=== PATIENT | female | born 1985 | race Caucasian/White ===

== ENCOUNTER 2017-09-10 13:25 | Emergency (ER) | payer OTHER ==
[~2017-09-10] VITALS: Ht 165.1 cm; Wt 70.0 kg
[2017-09-10] MEDS ORDERED: MULT1CAP32 PO (13:30)
[2017-09-10 14:21] LABS: BASOPHILS # (AUTO) 0.05 K/uL (0.00-0.20); BASOPHILS % (AUTO) 0.7 % (0.0-2.0); EOSINOPHILS # (AUTO) 0.21 K/uL (0.00-0.70); EOSINOPHILS % (AUTO) 3.21 % (1.0-6.0); HEMATOCRIT 38.1 % (36-46); HEMOGLOBIN 12.4 g/dL (12.0-16.0); MEAN CORPUSCULAR HEMOGLOBIN 28.4 pg (26.0-34.0); MEAN CORPUSCULAR HGB CONC 32.6 G/dL (31.0-37.0); MEAN CORPUSCULAR VOLUME 87 fL (80-100); MONOCYTES # (AUTO) 0.5 K/uL (0.1-1.0); MONOCYTES % (AUTO) 6.9 % (2.0-9.0); NEUTROPHILS # (AUTO) 3.9 K/uL (1.8-7.7); NEUTROPHILS % (AUTO) 59.2 % (40.0-70.0); PLATELET COUNT (AUTO) 341 K/uL (150-450); RED BLOOD CELL COUNT(AUTO) 4.37 MIL/uL (4.00-5.20); RED CELL DISTRIBUTION WIDTH 16.4 % (11.5-14.5); WHITE BLOOD COUNT (AUTO) 6.7 K/uL (4.5-11.0)
[2017-09-10] MEDS ORDERED: SODIUM CHLORIDE 0.9% 1,000 ML IV ONE (14:45)
[2017-09-10 14:55] LABS: ALANINE AMINOTRANSFERASE 19 U/L (12-78); ALBUMIN 3.3 g/dL (3.4-5.0); ANION GAP 4 mmol/L (8-16); ASPARTATE AMINOTRANSFERASE 12 U/L (15-37); BILIRUBIN,TOTAL 0.2 mg/dL (0.1-1.0); CALCIUM, TOTAL 8.4 mg/dL (8.8-10.5); CARBON DIOXIDE 29 mmol/L (22-29); CHLORIDE 108 mmol/L (98-107); CREATININE 0.72 mg/dL (0.60-1.30); GLOMERULAR FILTR. RATE CALC > 60 mL/min (>60); POTASSIUM 3.6 mmol/L (3.5-5.1); SODIUM SERUM 141 mmol/L (136-145); TOTAL PROTEIN, SERUM 7.1 g/dL (6.4-8.2); UREA NITROGEN, BLOOD 7 mg/dL (7-18)
[2017-09-10 15:02] LABS: GLUCOSE,POINT OF CARE 97 MG/DL (70-110)
[2017-09-10 17:00] LABS: APPEARANCE,URINE CLOUDY (CLEAR); GLUCOSE, URINE (UA) NEGATIVE (NEGATIVE); KETONES,URINE NEGATIVE (NEGATIVE); LEUKOCYTE ESTERASE ,URINE NEGATIVE (NEGATIVE); OCCULT BLOOD,URINE SMALL (NEGATIVE); PH,URINE 5.5 (5.0-8.0); PROTEIN,URINE NEGATIVE (NEGATIVE)
[2017-09-10 17:25] LABS: SQUAMOUS EPITHELIAL CELL,UR Moderate /LPF (None Seen)
[2017-09-10 17:30] VITALS: BP 111/68
[2017-09-10] MEDS ORDERED: CEPHALEXIN MONOHYDRATE 500 MG CAPSULE PO ONE (17:30)
== END 2017-09-10 17:48 | disposition home or self-care (01) ==
LOC: EDUNIT# 13:25 → EMS 13:33
DX: N39.0 Urinary tract infection, site not specified (principal); F15.90 Other stimulant use, unspecified, uncomplicated
CPT/HCPCS: 36415; 80053; 80307; 81001; 82948; 82962; 83690; 84484; 84703; 85025; 87077; 87086; 87186; 93005; 96360; 96361; 99285; J7030

== ENCOUNTER 2019-07-12 20:27 | Emergency (ER) | payer OTHER ==
[~2019-07-12] VITALS: Ht 165.1 cm; Wt 70.5 kg
[~2019-07-12 20:27] MED LIST: MULT1CAP32 PO
[2019-07-12 20:34] VITALS: BP 108/76
[2019-07-12 20:57] LABS: BASOPHILS % (AUTO) 0.7 % (0.0-2.0); EOSINOPHILS % (AUTO) 3.2 % (1.0-6.0); HEMATOCRIT 31.4 % (36-46); HEMOGLOBIN 9.8 g/dL (12.0-16.0); LYMPHOCYTES # (AUTO) 1.9 K/uL (1.0-4.8); LYMPHOCYTES % (AUTO) 27.5 % (22.0-44.0); MEAN CORPUSCULAR HEMOGLOBIN 24.4 pg (26.0-34.0); MEAN CORPUSCULAR HGB CONC 31.3 G/dL (31.0-37.0); MEAN CORPUSCULAR VOLUME 78 fL (80-100); MONOCYTES # (AUTO) 0.6 K/uL (0.1-1.0); MONOCYTES % (AUTO) 8.4 % (2.0-9.0); NEUTROPHILS # (AUTO) 4.2 K/uL (1.8-7.7); NEUTROPHILS % (AUTO) 60.2 % (40.0-70.0); PLATELET COUNT (AUTO) 523 K/uL (150-450); RED BLOOD CELL COUNT(AUTO) 4.03 MIL/uL (4.00-5.20); RED CELL DISTRIBUTION WIDTH 16.3 % (11.5-14.5)
[2019-07-12 21:06] LABS: ANION GAP 8 mmol/L (8-16); CALCIUM, TOTAL 8.7 mg/dL (8.8-10.5); CARBON DIOXIDE 27 mmol/L (22-29); CHLORIDE 104 mmol/L (98-107); CREATININE 0.95 mg/dL (0.60-1.30); GLOMERULAR FILTR. RATE CALC > 60 mL/min (>60); GLUCOSE,RANDOM 68 mg/dL (70-110); POTASSIUM 3.9 mmol/L (3.5-5.1); SODIUM SERUM 139 mmol/L (136-145); UREA NITROGEN, BLOOD 12 mg/dL (7-18)
[2019-07-12 21:17] LABS: ALANINE AMINOTRANSFERASE 28 U/L (12-78); ALBUMIN 3.4 g/dL (3.4-5.0); ALKALINE PHOSPHATASE 57 U/L (46-116); ASPARTATE AMINOTRANSFERASE 23 U/L (15-37); BILIRUBIN,TOTAL 0.3 mg/dL (0.1-1.0); HCG,QUANTITATIVE < 1 mIU/mL (0-6); TOTAL PROTEIN, SERUM 7.3 g/dL (6.4-8.2)
== END 2019-07-12 22:15 | disposition left against medical advice (07) ==
LOC: EMS 20:28
DX: R07.9 Chest pain, unspecified (principal); R06.02 Shortness of breath; F41.9 Anxiety disorder, unspecified; J45.909 Unspecified asthma, uncomplicated; Z53.21 Procedure and treatment not carried out due to patient leaving prior to being seen by health care provider
CPT/HCPCS: 93005

== ENCOUNTER 2021-02-24 15:58 | Emergency (ER) | payer MEDICAID ==
[~2021-02-24] VITALS: Ht 165.1 cm; Wt 68.2 kg
[2021-02-24] MEDS ORDERED: LIDOCAINE 1% 10 ML VIAL SQ ONE (22:15)
[2021-02-24 23:30] VITALS: BP 121/68
== END 2021-02-24 23:57 | disposition home or self-care (01) ==
LOC: EMS 16:00
DX: S01.81XA Laceration without foreign body of other part of head, initial encounter (principal); F11.20 Opioid dependence, uncomplicated; J45.909 Unspecified asthma, uncomplicated; W01.0XXA Fall on same level from slipping, tripping and stumbling without subsequent striking against object, initial encounter; Y93.89 Activity, other specified; Y92.098 Other place in other non-institutional residence as the place of occurrence of the external cause; Y99.8 Other external cause status
CPT/HCPCS: 99285; J3490

== ENCOUNTER 2023-04-17 20:40 | Emergency (ER) | payer MEDICAID ==
[~2023-04-17] VITALS: Ht 165.1 cm; Wt 81.8 kg
[2023-04-18] MEDS ORDERED: KETOROLAC TROMETHAMINE 30 MG/ML VIAL IVP ONE (00:30)
[2023-04-18 01:22] LABS: EOSINOPHILS % (AUTO) 3.4 % (1.0-6.0); HEMATOCRIT 32.9 % (36-46); HEMOGLOBIN 10.6 g/dL (12.0-16.0); LYMPHOCYTES # (AUTO) 1.9 K/uL (1.0-4.8); LYMPHOCYTES % (AUTO) 32.1 % (22.0-44.0); MEAN CORPUSCULAR HEMOGLOBIN 26.4 pg (26.0-34.0); MEAN CORPUSCULAR HGB CONC 32.1 G/dL (31.0-37.0); MEAN CORPUSCULAR VOLUME 82 fL (80-100); MONOCYTES # (AUTO) 0.6 K/uL (0.1-1.0); MONOCYTES % (AUTO) 10.8 % (2.0-9.0); NEUTROPHILS % (AUTO) 52.7 % (40.0-70.0); PLATELET COUNT (AUTO) 388 K/uL (150-450); RED CELL DISTRIBUTION WIDTH 15.4 % (11.5-14.5)
[2023-04-18 01:31] LABS: ANION GAP 9 mmol/L (8-16); CALCIUM, TOTAL 9.7 mg/dL (8.8-10.5); CARBON DIOXIDE 29 mmol/L (22-29); CHLORIDE 103 mmol/L (98-107); CREATININE 0.89 mg/dL (0.60-1.30); GLOMERULAR FILTR. RATE CALC > 60 mL/min (>60); GLUCOSE,RANDOM 98 mg/dL (70-110); POTASSIUM 3.6 mmol/L (3.5-5.1); SODIUM SERUM 141 mmol/L (136-145)
[2023-04-18 01:37] LABS: LACTIC ACID 0.5 mmol/L (0.4-2.0)
[2023-04-18 02:03] LABS: ALANINE AMINOTRANSFERASE 17 U/L (12-78); ALBUMIN 3.7 g/dL (3.4-5.0); ALKALINE PHOSPHATASE 69 U/L (46-116); ASPARTATE AMINOTRANSFERASE 22 U/L (15-37); BILIRUBIN,TOTAL 0.5 mg/dL (0.1-1.0); CREATINE KINASE, TOTAL ONLY 199 U/L (26-192); TOTAL PROTEIN, SERUM 8.4 g/dL (6.4-8.2)
[2023-04-18 02:07] LABS: AMPHET/METH SCREEN,URINE POSITIVE (NEGATIVE); BARBITURATE SCREEN, URINE NEGATIVE (NEGATIVE); BENZODIAZEPINES SCREEN,URINE NEGATIVE (NEGATIVE); CANNABINOID SCREEN,URINE POSITIVE (NEGATIVE); COCAINE SCREEN,URINE POSITIVE (NEGATIVE); METHADONE SCREEN, URINE NEGATIVE (NEGATIVE); OPIATE SCREEN,URINE NEGATIVE (NEGATIVE); PHENCYCLIDINE SCREEN,URINE NEGATIVE (NEGATIVE)
[2023-04-18] MEDS ORDERED: IOHEXOL 350 MG/ML 100 ML VIAL ONE ×2 (02:22→07:02)
[2023-04-18] MEDS ORDERED: SODIUM CHLORIDE 0.9% 100 ML ONE ×2 (02:23→07:03)
[2023-04-18] MEDS ORDERED: SODIUM CHLORIDE 0.9% 1,000 ML IV ONE (05:45)
[2023-04-18] MEDS ORDERED: DOXY-354 PO (06:37)
[2023-04-18] MEDS ORDERED: HYDROGEN PEROXIDE 118 ML SOLUTION TP ONE (10:15)
[2023-04-18] MEDS ORDERED: BACI28OI9 TP (10:40)
[2023-04-18] MEDS ORDERED: CEPH-558 PO (10:40)
[2023-04-18 11:02] VITALS: BP 111/76
== END 2023-04-18 11:14 | disposition home or self-care (01) ==
LOC: EMS 20:40
DX: S70.12XA Contusion of left thigh, initial encounter (principal); L03.116 Cellulitis of left lower limb; F11.20 Opioid dependence, uncomplicated; F14.10 Cocaine abuse, uncomplicated; F15.90 Other stimulant use, unspecified, uncomplicated; J45.909 Unspecified asthma, uncomplicated; V23.49XA Other motorcycle driver injured in collision with car, pick-up truck or van in traffic accident, initial encounter; Y93.55 Activity, bike riding; Y92.89 Other specified places as the place of occurrence of the external cause; Y99.8 Other external cause status
CPT/HCPCS: 99285; 80053; 82550; 83605; 85025; 85379; 87040; 36415; 80307; 73701; 96361; 96374; 93971; 73503; 73552; 73562; 73590; G0480; J1885; Q9967; J7030; J7050

== ENCOUNTER 2025-07-04 10:04 | Inpatient (IN) | payer MEDICAID, OTHER ==
[~2025-07-04] VITALS: Ht 162.6 cm; Wt 68.2 kg
[~2025-07-04 10:04] MED LIST changes: +BACI28.410 TP; +CEPH-558 PO; +DOXY-354 PO; -MULT1CAP32 PO
[2025-07-04 11:10] LABS: PLATELET COUNT (AUTO) 370 K/uL (150-450); RED BLOOD CELL COUNT(AUTO) 4.25 MIL/uL (4.00-5.20); RED CELL DISTRIBUTION WIDTH 18.8 % (11.5-14.5); WHITE BLOOD COUNT (AUTO) 8.0 K/uL (4.5-11.0)
[2025-07-04] MEDS: KETOROLAC TROMETHAMINE 30 MG/ML VIAL IVP ONE (11:16)
[2025-07-04] MEDS: ONDANSETRON HCL 4 MG/2 ML VIAL IVP ONE (11:16)
[2025-07-04] MEDS: SODIUM CHLORIDE 0.9% 1,000 ML IV ONE ×2 (11:16→14:18)
[2025-07-04 11:29] LABS: COVID AG,FIA SOURCE NASAL SWAB
[2025-07-04 11:29] LABS: CALCIUM, TOTAL 9.0 mg/dL (8.8-10.5); CREATININE 0.81 mg/dL (0.60-1.30); GLOMERULAR FILTR. RATE CALC > 60 mL/min (>60); GLUCOSE,RANDOM 85 mg/dL (70-110); SODIUM SERUM 139 mmol/L (136-145); UREA NITROGEN, BLOOD 12 mg/dL (7-18)
[2025-07-04 11:48] LABS: SARS-COV2 (COVID) ANTIGEN,FIA Negative (Negative)
[2025-07-04 12:22] LABS: PH,URINE DRUG SCREEN 6.0 (5.0-8.0)
[2025-07-04 12:36] LABS: ALCOHOL, URINE DRUG SCREEN NEGATIVE (NEGATIVE); AMPHET/METH SCREEN,URINE POSITIVE (NEGATIVE); BARBITURATE SCREEN, URINE NEGATIVE (NEGATIVE); CANNABINOID SCREEN,URINE NEGATIVE (NEGATIVE); COCAINE SCREEN,URINE POSITIVE (NEGATIVE); METHADONE SCREEN, URINE NEGATIVE (NEGATIVE)
[2025-07-04] MEDS ORDERED: ACETAMINOPHEN 325 MG TABLET PO PRN (13:00)
[2025-07-04] MEDS ORDERED: MAGNESIUM HYDROXIDE SUSPENSION 30 ML UDCUP PO PRN (13:00)
[2025-07-04] MEDS ORDERED: ONDANSETRON HCL 4 MG/2 ML VIAL IVP PRN (13:00)
[2025-07-04 16:33] VITALS: BP 118/69; PULSE 59; RESP 18; TEMP 97.1; O2SAT 97
[2025-07-04 20:03] VITALS: BP 119/77; PULSE 61; RESP 18; TEMP 97.7; O2SAT 97
[2025-07-05 05:21] VITALS: BP 126/78; PULSE 60; RESP 18; TEMP 98.6; O2SAT 97
[2025-07-05 08:04] VITALS: BP 117/78; PULSE 74; RESP 18; TEMP 98; O2SAT 97
[2025-07-05] MEDS: FAMOTIDINE 20 MG TABLET PO SCH (08:17)
[2025-07-05] MEDS ORDERED: IBUPROFEN 600 MG TABLET PO PRN (13:45)
[2025-07-05] MEDS ORDERED: DICYCLOMINE HCL 10 MG CAPSULE PO PRN (13:45)
[2025-07-05] MEDS ORDERED: PROMETHAZINE HCL 25 MG TABLET PO PRN (13:45)
[2025-07-05] MEDS ORDERED: MAG HYDROX/ALUMINUM HYD/SIMETH ES 30 ML SUSPENSION UDCUP PO PRN ×2 (13:45)
[2025-07-05] MEDS: SODIUM CHLORIDE 0.45% 1,000 ML IV SCH (15:17)
[2025-07-05 15:22] LABS: MTB PCR w/Rif. Resistance-SPUT NOT DETECTED (Not Detectd)
[2025-07-05 20:45] VITALS: BP 124/55; PULSE 63; RESP 18; TEMP 98.2; O2SAT 100
[2025-07-05] MEDS: ZOLPIDEM TARTRATE 5 MG TABLET PO PRN (21:30)
[2025-07-06] VITALS (8 sets, daily range): BP systolic 107–133; BP diastolic 59–90; PULSE 53–65; RESP 14–20; TEMP 97.7–98.8; O2SAT 98–100
[2025-07-06 11:56] LABS: MTB PCR w/Rif. Resistance-SPUT NOT DETECTED (Not Detectd)
[2025-07-07] MEDS: BACLOFEN 10 MG TABLET PO PRN (03:29)
[2025-07-07 05:07] VITALS: BP 121/73; PULSE 74; RESP 18; TEMP 97.9; O2SAT 97
[2025-07-07] MEDS: LOPERAMIDE HCL 2 MG CAPSULE PO PRN (06:00)
[2025-07-07 08:58] VITALS: BP 122/80; PULSE 50; RESP 18; TEMP 97.6; O2SAT 100
[2025-07-07 20:13] VITALS: BP 109/74; PULSE 56; RESP 18; TEMP 97.8; O2SAT 98
[2025-07-07] MEDS ORDERED: NALOXONE HCL 0.4 MG/ML VIAL ONE (21:22)
[2025-07-08] VITALS (8 sets, daily range): BP systolic 109–136; BP diastolic 63–98; PULSE 48–64; RESP 18–20; TEMP 98–99.5; O2SAT 97–100
[2025-07-08] MEDS: ACETAMINOPHEN 325 MG TABLET PO PRN (08:53)
[2025-07-09 04:06] LABS: QUANTIFERON+, Nil Value 0.01 IU/mL; QUANTIFERON+,Mitogen Value 7.80 IU/mL; QUANTIFERON+,TB1 Antigen Value 0.03 IU/mL; QUANTIFERON+,TB2 Antigen Value 0.05 IU/mL; QUANTIFERON, TB GOLD PLUS Negative (Negative)
[2025-07-09 04:35] VITALS: BP 115/84; PULSE 73; RESP 18; TEMP 97.3; O2SAT 98
[2025-07-09 08:10] VITALS: BP 126/88; PULSE 67; RESP 18; TEMP 98.6; O2SAT 98
[2025-07-09 12:39] VITALS: BP 115/72; PULSE 75; RESP 18; TEMP 98; O2SAT 98
[2025-07-09 15:17] LABS: APPEARANCE,URINE CLEAR (CLEAR); GLUCOSE, URINE (UA) NEGATIVE (NEGATIVE); LEUKOCYTE ESTERASE ,URINE NEGATIVE (NEGATIVE); NITRATE,URINE NEGATIVE (NEGATIVE); OCCULT BLOOD,URINE LARGE (NEGATIVE); SPECIFIC GRAVITIY, URINE 1.005 (1.003-1.030)
[2025-07-09 16:33] VITALS: BP 120/87; PULSE 67; RESP 18; TEMP 98.5; O2SAT 98
[2025-07-09 19:39] VITALS: BP 100/63; PULSE 90; RESP 18; TEMP 97.6; O2SAT 99
[2025-07-10 04:26] VITALS: BP 116/86; PULSE 65; RESP 18; TEMP 97.8; O2SAT 99
[2025-07-10 05:53] VITALS: BP 119/71; PULSE 62; RESP 19
[2025-07-10 08:10] VITALS: BP 100/66; PULSE 75; RESP 18; TEMP 98.9; O2SAT 98
[2025-07-10 11:28] VITALS: BP 102/66; PULSE 77; RESP 18; TEMP 98.7; O2SAT 99
[2025-07-10] MEDS ORDERED: FLUO20SO24 PO (12:59)
[2025-07-10] MEDS ORDERED: QUET300T2 PO (13:00)
[2025-07-10] MEDS ORDERED: QUET200T PO (13:00)
== END 2025-07-10 17:10 | DRG 760 ==
LOC: EMS 10:08 → EDH 12:46 → 4E 16:05 → UNDODISIN 07-07 13:15 → ICU 07-07 20:28 → 6N 07-08 17:59
PROVIDERS: ADMIT Internal Medicine; ATTEND Internal Medicine
PROC: 0UCG7ZZ Extirpation of Matter from Vagina, Via Natural or Artificial Opening (ICD-10-PCS; principal; 2025-07-07)
PROC: GZ58ZZZ Individual Psychotherapy, Cognitive-Behavioral (ICD-10-PCS; 2025-07-07)
PROC: GZ56ZZZ Individual Psychotherapy, Supportive (ICD-10-PCS; 2025-07-07)
DX: T19.2XXA Foreign body in vulva and vagina, initial encounter (principal); F11.23 Opioid dependence with withdrawal; F15.23 Other stimulant dependence with withdrawal; Z59.819 Housing instability, housed unspecified; D50.9 Iron deficiency anemia, unspecified; Z20.822 Contact with and (suspected) exposure to COVID-19; F25.0 Schizoaffective disorder, bipolar type; G47.00 Insomnia, unspecified; J45.909 Unspecified asthma, uncomplicated; Z87.891 Personal history of nicotine dependence; Z83.3 Family history of diabetes mellitus; Z82.49 Family history of ischemic heart disease and other diseases of the circulatory system; Z78.9 Other specified health status; Z98.84 Bariatric surgery status; Z98.891 History of uterine scar from previous surgery; W44.8XXA Other foreign body entering into or through a natural orifice, initial encounter
CPT/HCPCS: 71045; 74018; 80048; 80307; 81001; 84703; 85025; 86480; 87015; 87070; 87081; 87206; 87389; 87556; 94640; 96374; 96375; 99285; G0378; G0480; J1885; J2312; J2405; J7030; 36415-L1; 36415-TC